=== PATIENT | male | born 1990 | race Caucasian/White ===

== ENCOUNTER 2017-10-27 23:36 | Emergency (ER) | payer SELFPAY ==
[2017-10-27 23:36] VITALS: BP 121/72; PULSE 108; RESP 18; TEMP 35.5; O2SAT 98; BMI 25.7
--- NOTE | 2017-10-28 00:34 | ED.VISSUMM ---
- ER Visit Summary Date of Service: 10/28/17 Chief Complaint: Dysuria, penile discharge History of Present Illness: The patient is a 26 M 4 day history dysuria and penile discharge. White discharge. No fever. Sexually active multiple partners, no protection every time. No history of STDs. No allergies. Physical Examination: General: Alert and oriented ?3, no acute distress HEENT: Normocephalic, atraumatic. Moist mucosa membranes Neck: supple, nontender. Cardiovascular: Regular rate and rhythm, no murmurs Respiratory: Normal breath sounds, symmetric, no distress Abdomen: Soft, nontender, nondistended : No active drainage. No lesions. No testicular tenderness. Normal testicular lie. Extremities: Nontender, no edema, pulses intact ?4 Neuro: no focal neurological deficits. Test Results: Urine culture, GC chlamydia sent. UA: Pending results. Emergency Department Course and Treatment: Patient vitals stable. History with urethritis. Discussed likely STD. Urine studies sent. Patient agrees with treatment. Rocephin and Zithromax started. He is given follow-up as an outpatient. Discussed using protection with symptoms. Partners need to be evaluated and treated as needed. Treatment Plan: [] Disposition: Discharge Impression: Urethritis This note was generated with [employer] dictation software. It may contain incorrect words, spelling, and punctuation that were not noted in review of the chart prior to signing ED Disposition - Plan for ED Patient: Disposition: Home or Assisted Living Chief Complaint: Complaint Diagnosis: Urethritis Instructions: ED Urethritis Infec Vs Inflam Male Referrals: Care Physician,No Primary [Primary Care Provider] - Madisyn Camejo MD [STAFF PHYSICIAN] - 5-7 Days
[2017-10-28] MEDS: Ceftriaxone 500 MG Vial 250 MG IM (00:46)
[2017-10-28] MEDS: Azithromycin 250 MG Tablet 1000 MG PO (00:46)
[2017-10-28 01:13] VITALS: RESP 16
--- NOTE | 2017-10-28 01:14 | ED.RN ---
no reaction at injection site.
[2017-10-28 02:46] LABS: Chlamydia Trachomatis by PCR Negative (Negative); Probe Check PASS
[2017-10-28 02:47] LABS: Neisserai gonorrhoeae by PCR Positive (Negative)
--- NOTE | 2017-10-28 03:06 | ED.RN ---
lab called with critical results. positive gonorrhoeae results. Dr. Munguia made aware. medication provided prior to discharge. will call patient in the morning to notify of results.
--- NOTE | 2017-10-28 07:24 | ED.RN ---
patient called and notified of test results. No further orders to be given at this time. Patient expresses personal understanding
== END 2017-10-28 01:14 | disposition home or self-care (01) ==
LOC: ED 10-28 00:48
PROVIDERS: Emergency Provider Emergency Medicine
DX: N34.2 Other urethritis (principal); Z72.0 Tobacco use
CPT/HCPCS: 87086; 87491; 87591; 96372; 99282

== ENCOUNTER 2017-11-09 17:15 | Emergency (ER) | payer SELFPAY ==
[2017-11-09 17:15] VITALS: BP 133/69; PULSE 104; RESP 14; TEMP 36.4; O2SAT 98; BMI 24.4
--- NOTE | 2017-11-09 19:32 | ED.VISSUMM ---
- ER Visit Summary Date of Service: 11/09/17 Chief Complaint: Back pain History of Present Illness: The patient is a 26 M who presents with a lower back pain. Patient states that he has had chronic low back pain for years but seems to have gotten worse. He notes no radicular symptoms. No numbness or tingling. No fevers. No urinary or bowel symptoms. He states that he recently started a new job at [employer]. He does not have any health insurance and does not know who will see him on an outpatient basis. Denies any recent trauma. He states that he is been recently treated for gonorrhea urethritis. He states those symptoms have resolved. Denies any fevers or rashes. Patient states that he has had a disc problem diagnosed in the past. He states he would prefer not to take any pills as he would like to keep things natural and was wondering about a marijuana card. Physical Examination: Afebrile vital signs are stable Gen: Well-nourished well-developed Head: Normocephalic atraumatic Eyes: Perrl EOMI ENT: TMs clear no rhinorrhea moist mucous membranes Neck: Supple no lymphadenopathy no JVD nontender CVS: Regular rate rhythm no murmurs normal S1-S2 Respiratory: No distress clear to auscultation bilaterally chest nontender Abdomen: Soft nontender nondistended normal bowel sounds no masses Back: Patient complains of tenderness to palpation the lower lumbar paraspinal musculature. There is no rash or erythema in this area. Extremity: Nontender no edema Skin: Normal color no rash Neuro: alert orientated ?3 CN II-XII intact normal strength sensation reflexes gait cerebellar Psych: Normal affect normal mood Emergency Department Course and Treatment: Will be treated with ibuprofen and Flexeril. I will refer him to the starts in clinic. The patient was advised on return symptoms such as fevers, rashes, neurologic deficits. As the patient does not have any fever or any rash or any erythema do not think we need to pursue a spinal abscess workup. He has no neurologic deficits I do not think we have any acute nerve impingement. Impression: 1. Acute on chronic back pain This note was generated with [employer] dictation software. It may contain incorrect words, spelling, and punctuation that were not noted in review of the chart prior to signing ED Disposition - Plan for ED Patient: Disposition: Home or Assisted Living Chief Complaint: Back Instructions: ED Neck Back Pain General Prescriptions: Ibuprofen [Motrin] 800 mg PO TID PRN PRN #20 tab PRN Reason: Pain Cyclobenzaprine [Flexeril] 10 mg PO TID PRN #20 tab PRN Reason: Muscle Spasm Referrals: Mona Wade [NON-STAFF] - As soon as possible
--- NOTE | 2017-11-09 19:48 | ED.RN ---
DISCHARGE INSTRUCTIONS GIVEN TO AND REVIEWED WITH PATIENT, PATIENT DENIES QUESTIONS OR CONCERNS AND VOICES UNDERSTANDING OF DISCHARGE INSTRUCTIONS. PT AMBULATES OUT OF ROOM WITHOUT DIFFICULTY.
== END 2017-11-09 19:49 | disposition home or self-care (01) ==
PROVIDERS: Emergency Provider Emergency Medicine
DX: M54.9 Dorsalgia, unspecified (principal); G89.29 Other chronic pain; Z72.0 Tobacco use
CPT/HCPCS: 99282

== ENCOUNTER 2021-04-06 07:48 | Emergency (ER) | payer SELFPAY ==
[2021-04-06 07:48] VITALS: BP 109/73; PULSE 103; RESP 16; TEMP 36.4; O2SAT 100; BMI 27.8
[2021-04-06] MEDS: Triamcinolone Acetonide 40 MG/ML Vial 80 MG IM (08:53)
--- NOTE | 2021-04-06 10:23 | EX.ED.DYSGE1 ---
HPI History of Present Illness Chief Complaint: Sore Throat Narrative Narrative: Patient states he has had 2 to 3 days of nasal congestion sore throat headache and fatigue. He denies any known sick contacts fevers or chills. He states he is not vaccinated against Covid. He reports he also has a rash from working outside and is concerned he has poison oak/sumac. He states because of his constellation of symptoms and concern for infection he presents for evaluation [facility] Medical History Marijuana abuse Home Medications prednisone 10 mg PO DAILY #30 tab 04/06/21 [Rx Last Taken Unknown] Allergy/AdvReac Type Severity Reaction Status Date / Time No Known Allergies Allergy Verified 04/06/21 09:02 Surgical History H/O hernia repair Social History Smoking Status: Current every day smoker tobacco type: cigarettes ROS ROS ED Constitutional Constitutional ED: Denies chills or fever(s) ENT ENT ED: Reports rhinorrhea and sore throat Cardiovascular Cardiovascular: Denies chest pain Respiratory/Chest Respiratory/Chest: Reports cough; Denies dyspnea Gastrointestinal Gastrointestinal: Denies abdominal pain, diarrhea, nausea or vomiting Genitourinary Genitourinary ED: Denies dysuria Musculoskeletal Musculoskeletal: Reports myalgias Integumentary Reports rash Neurologic Neurologic: Reports headache(s) Hematologic/Lymphatic Hematologic/Lymphatic: Denies easy bleeding or easy bruising Allergic/Immunologic Allergic/Immunologic ED: Denies mouth swelling or tongue swelling EXAM Physical Exam Const Vital Signs: 04/06/21 07:48 Temperature 97.5 F L Temperature Source Temporal Pulse Rate 103 H Respiratory Rate 16 Blood Pressure 109/73 Blood Pressure Mean 85 Pulse Ox 100 Oxygen Delivery Method Room Air Positive well nourished and well developed General Appearance ED: well developed HEENT Reports moist mucous membranes HEENT Narrative: There is cobblestoning the posterior pharynx consistent with sinus drainage but no airway edema or compromise Eyes PERRL and EOMs intact bilaterally Neck supple Neck Narrative: Positive anterior cervical lymphadenopathy Resp normal respiratory effort and clear to auscultation bilaterally Cardio regular rate and regular rhythm GI normal to inspection, nondistended, normoactive bowel sounds, non-tender and non-distended Auscultation: normoactive bowel sounds Palpation: soft Extremity normal to inspection Neuro oriented x3 and CN's II-XII intact bilaterally Sensorium / Orientation: alert Psych mental status grossly normal Skin Skin Narrative: Patient has erythematous blanchable urticarial with vesicular changes of bilateral arms consistent with contact dermatitis without secondary changes to suggest infection. No involvement of the palms or soles MDM MDM MDM Narrative Medical decision making narrative: Patient presented to the ER with stable vitals and normal neuro exam and no overt signs of infection. With his constellation of symptoms and unvaccinated status there is concern this could be Covid. Rapid Covid test was negative as well as a strep swab. At this time I feel patient is having a viral syndrome along with his contact dermatitis. Therefore he will be placed on a prednisone taper secondary to this but as he has no signs of systemic infection or neurologic event he is safe for discharge Discharge Plan Triage Chief Complaint: Sore Throat Other Complaint: Rash ED Provider: Gio Cabrera Dx/Rx/DC Orders Clinical Impression: URI, acute, Contact dermatitis Instructions: Understanding Contact Dermatitis, ED URI, Viral, No Abx (Adult) Prescriptions: New prednisone 10 mg tablet 10 mg PO DAILY Qty: 30 RF: 0 Primary Care Provider: Care Physician,No Primary Referrals: Genoveva Worthy DO [STAFF PHYSICIAN] - Care Physician,No Primary [Primary Care Provider] - Disposition Disposition: Home, Self Care
== END 2021-04-06 11:30 | disposition home or self-care (01) ==
PROVIDERS: Emergency Provider Emergency Medicine
DX: J06.9 Acute upper respiratory infection, unspecified (principal); L25.9 Unspecified contact dermatitis, unspecified cause; F12.10 Cannabis abuse, uncomplicated; F17.210 Nicotine dependence, cigarettes, uncomplicated
CPT/HCPCS: 87426; 87880; 96372; 99282